=== PATIENT | female | born 2005 | race African-American/Black ===

== ENCOUNTER 2023-03-09 13:00 | Outpatient (CLI) | payer OTHER ==
[2023-03-09 19:30] LABS: BACTERIAL VAGINOSIS DNA POSITIVE (NEGATIVE); CANDIDA GROUP DNA NEGATIVE (NEGATIVE); CANDIDA KRUSEI DNA NEGATIVE (NEGATIVE); TRICHOMONAS VAGINALIS DNA NEGATIVE (NEGATIVE)
[2023-03-09 19:31] LABS: CANDIDA GLABRATA DNA NEGATIVE (NEGATIVE)
[2023-03-09 22:34] LABS: CHLAMYDIA TRACHOMATIS DNA NEGATIVE (NEGATIVE); NEISSERIA GONORRHOEAE DNA NEGATIVE (NEGATIVE)
[2023-03-11 00:07] LABS: HCV AB Non Reactive (Non Reactive)
[2023-03-11 01:08] LABS: HSV 2 IGG TYPE SPEC <0.91 index (0.00-0.90)
[2023-03-11 08:10] LABS: HIV SCREEN 4TH GENERATION Non Reactive (Non Reactive)
== END 2023-03-09 13:15 | disposition home or self-care (01) ==
LOC: LAB.N 13:00
PROVIDERS: ATTEND Family Medicine
DX: R30.0 Dysuria (principal); Z11.3 Encounter for screening for infections with a predominantly sexual mode of transmission
CPT/HCPCS: 36415; 81514; 86695; 86696; 86803; 87077; 87086; 87181; 87389; 87491; 87591; 87661

== ENCOUNTER 2024-04-14 08:00 | Outpatient (CLI) | payer OTHER ==
[2024-04-14 21:56] LABS: CHLAMYDIA TRACHOMATIS DNA NEGATIVE (NEGATIVE); NEISSERIA GONORRHOEAE DNA NEGATIVE (NEGATIVE); TRICHOMONAS VAGINALIS DNA NEGATIVE (NEGATIVE)
[2024-04-16 06:08] LABS: HIV SCREEN 4TH GENERATION Non Reactive (Non Reactive)
[2024-04-16 13:10] LABS: HSV 2 IGG TYPE SPEC <0.91 index (0.00-0.90)
[2024-04-17 03:10] LABS: RPR Non Reactive (Non Reactive)
[2024-04-17 08:11] LABS: HCV AB Non Reactive (Non Reactive)
== END 2024-04-14 23:59 | disposition home or self-care (01) ==
LOC: LAB.N 08:00
PROVIDERS: ATTEND Physician Assistant
DX: Z11.3 Encounter for screening for infections with a predominantly sexual mode of transmission (principal)
CPT/HCPCS: 36415; 86592; 86695; 86696; 86803; 87389; 87491; 87591; 87661